=== PATIENT | male | born 1960 | race Two or more races ===

== ENCOUNTER 2024-02-25 09:38 | Outpatient (OUT) | payer OTHER, SELFPAY ==
[2024-02-25 10:12] LABS: Basophils Absolute Auto 0.1 10^3/uL (0.0-0.1); Basophils Percent Auto 0.9 % (0.2-2.0); Eosinophils Absolute Auto 0.2 10^3/uL (0.0-0.7); Eosinophils Percent Auto 3.2 % (0.9-7.0); Hematocrit 41.4 % (42.0-54.0); Hemoglobin 13.9 g/dL (14.0-18.0); Lymphocytes Absolute Auto 2.1 10^3/uL (1.2-3.8); Lymphocytes Percent Auto 37.4 % (20.5-60.0); Mean Corpuscular HGB Conc 33.6 g/dL (29.9-35.2); Mean Corpuscular Hemoglobin 29.4 pg (25.9-34.0); Mean Corpuscular Volume 87.7 fL (80.0-94.0); Mean Platelet Volume 9.8 fL (9.5-13.5); Monocytes Absolute Auto 0.4 10^3/uL (0.3-0.8); Neutrophils Absolute Auto 2.9 10^3/uL (1.4-6.5); Neutrophils Percent Auto 51.5 % (43.0-75.0); Platelet Count 191 10^3/uL (150-450); Red Blood Count 4.72 10^6/uL (4.70-6.10); Red Cell Distribution Width 12.4 % (11.0-15.0); White Blood Count 5.5 10^3/uL (4.0-11.0)
[2024-02-25 10:47] LABS: Alanine Aminotransferase 27 U/L (16-63); Albumin Globulin Ratio 1.1; Albumin Level 3.9 g/dL (3.4-5.0); Alkaline Phosphatase 91 U/L (46-116); Anion Gap 11.8; Aspartate Amino Transferase 14 U/L (15-37); BUN Creatinine Ratio 15.5; Bilirubin Total 0.9 mg/dL (0.2-1.0); Calcium 9.2 mg/dL (8.5-10.1); Carbon Dioxide 30.2 mmol/L (21.0-32.0); Chloride 105 mmol/L (98-107); Chol HDL Ratio 3.2; Cholesterol 134 mg/dL (<=200); Estimated GFR (African America >60 (>=60); Estimated GFR (Non-African Ame >60 (>=60); Globulin 3.4 g/dL; Glucose 109 mg/dL (74-106); HDL Cholesterol 42 mg/dL (40-60); LDL Cholesterol Calculated 68.8 mg/dL; Sodium 143 mmol/L (136-145); Total Protein 7.3 g/dL (6.4-8.2); Triglycerides 116 mg/dL (<=150); VLDL CHOLESTEROL 23.2 mg/dL
[2024-02-25 10:56] LABS: Prostate Specific Antigen Dx 1.86 ng/mL (<=4.00)
[2024-02-25 11:16] LABS: Troponin I High Sensitivity 170.8 pg/mL (4.0-76.1)
== END 2024-02-25 09:39 | disposition home or self-care (01) ==
PROVIDERS: PCP Family Medicine; Visit Provider Family Medicine
DX: Z00.00 Encounter for general adult medical examination without abnormal findings (principal); I10 Essential (primary) hypertension; E78.00 Pure hypercholesterolemia, unspecified; R79.89 Other specified abnormal findings of blood chemistry
CPT/HCPCS: 36415; 80053; 80061; 84153; 84439; 84443; 84484; 85025

== ENCOUNTER 2024-02-25 14:04 | Emergency (ER) | payer OTHER, SELFPAY ==
[2024-02-25] VITALS (18 sets, daily range): BP systolic 119–142; BP diastolic 67–79; PULSE 63–76; TEMP 36.8; O2SAT 93–99; BMI 28.1
--- NOTE | 2024-02-25 14:40 | ED_ITS ---
HPI HPI - General Adult General Chief complaint: Chest Pain Stated complaint: ABNORMAL LEVELS Time Seen by Provider: 02/25/24 14:11 Source: patient and family Mode of arrival: walk-in Limitations: no limitations History of Present Illness HPI narrative: This patient is here for evaluation of abnormal laboratory testing. His primary care doctor ordered a wellness battery of test but this patient suggested that he add a troponin to it as well. He did that because he has been having some chest discomfort off and on for several weeks. He is well known to the cardiology group in [place]. In fact he has had 6 coronary stents placed at that facility. Since that time, because of ongoing chest discomfort he has seen Dr. Hernandez at the [facility]. He had upper endoscopy ,echocardiogram, nuclear stress test and everything was normal .he came to this hospital to have the lab test because of insurance does not cover some of his physicians in [facility] and even the [facility]. He does not have any acute short breath.aber he is on statins. He does take Plavix and aspirin. He does not have a family history of coronary disease that he is aware of. He has been lifting a lot of weights. He wonders if his chest discomfort might be from his back because he has some discomfort in the scapular area as well. Related Data Home Medications ?Medication ?Instructions ?Recorded ?Confirmed aspirin 81 mg tablet,delayed 81 mg PO DAILY 02/25/24 02/25/24 release (Adult Aspirin Regimen) atorvastatin 40 mg tablet 40 mg PO BEDTIME 02/25/24 02/25/24 clopidogrel 75 mg tablet 75 mg PO DAILY 02/25/24 02/25/24 lisinopril 10 mg tablet 5 mg PO DAILY 02/25/24 02/25/24 pantoprazole 20 mg tablet,delayed 20 mg PO DAILY 02/25/24 02/25/24 release Allergies Allergy/AdvReac Type Severity Reaction Status Date / Time No Known Drug Allergies Allergy Verified 02/25/24 14:21 Opioid HPI Opioid Management Most Recent Opioid Data: Last ED Pain Assessment 02/25/24 14:23 Exam Narrative Exam Narrative: Awake alert relaxed pleasant not anxious. Vital signs are normal. 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 Overall skin and integument were normal he appears very healthy. ENT shows no evidence of scleral icterus or pallor. Heart sounds are normal with no clicks rubs gallops or murmur. The back area shows lungs to be clear with no wheeze rales rhonchi or pleural rub. Perfusion to the extremities is good with good capillary fill and good pulses to the upper limbs. He does not have any abdominal pain. He has no neurological symptoms at this time. Constitutional Vital Signs, click to edit/add: Last Vital Signs Temp 98.2 F 02/25/24 14:16 Pulse 73 02/25/24 15:10 Resp 25 H 02/25/24 15:10 BP 119/67 02/25/24 15:00 Pulse Ox 94 L 02/25/24 15:10 O2 Del Method Room Air 02/25/24 14:16 Course Vital Signs Vital signs: Vital Signs Temperature 98.2 F 02/25/24 14:16 Pulse Rate 76 02/25/24 14:16 Respiratory Rate 18 02/25/24 14:16 Blood Pressure 142/78 H 02/25/24 14:16 Pulse Oximetry 99 02/25/24 14:16 Oxygen Delivery Method Room Air 02/25/24 14:16 Temperature 98.2 F 02/25/24 14:16 Pulse Rate 73 02/25/24 15:10 Respiratory Rate 25 H 02/25/24 15:10 Blood Pressure 119/67 02/25/24 15:00 Pulse Oximetry 94 L 02/25/24 15:10 Oxygen Delivery Method Room Air 02/25/24 14:16 Medical Decision Making MDM Narrative Medical decision making narrative: Patient's outpatient routine lab testing troponin was done here is elevated at 10/18/2004 and half hours later when we do repeat troponin in ER it still at 171. 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 Hoffman, and he reviewed his records. We reviewed his medications. He is scheduled to see him in a couple weeks but he says he will move up that appointment early next week. He thinks that the weight lifting may be contributing to some ventricular strain causing the persistent elevation of his troponin. I have recommended patient stop the weightlifting which she is already done now. No changes medication history was advised. Patient had extensive workup in September at the [facility] including nuclear stress, echocardiogram and upper endoscopy. Lab Data Labs: Lab Results 02/25/24 Range/Units 14:20 Troponin I High Sens 170.1 H* (4.0-76.1) pg/mL Discharge Plan Discharge Stand Alone Forms: Portal Instructions Chief Complaint: Chest Pain Clinical Impression: Atypical chest pain Patient Disposition: Home, Self-Care Time of Disposition Decision: 15:43 Prescriptions / Home Meds: No Action atorvastatin 40 mg tablet 40 mg PO BEDTIME clopidogrel 75 mg tablet 75 mg PO DAILY lisinopril 10 mg tablet 5 mg PO DAILY pantoprazole 20 mg tablet,delayed release (DR/EC) 20 mg PO DAILY aspirin [Adult Aspirin Regimen] 81 mg tablet,delayed release (DR/EC) 81 mg PO DAILY Print Language: Georgian Additional Instructions: Follow-up with Dr. Hoffman early next week as discussed Referrals: ASIF HARPER [Primary Care Provider] - 1 week
--- NOTE | 2024-02-25 14:49 | ECG_ITS ---
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
[2024-02-25 15:14] LABS: Troponin I High Sensitivity 170.1 pg/mL (4.0-76.1)
[2024-02-25] MEDS: ASPIRIN 81 MG TAB.CHEW PO (15:22)
== END 2024-02-25 16:06 | disposition home or self-care (01) ==
PROVIDERS: Emergency Provider Emergency Medicine Emergency Medical Services; PCP Family Medicine
DX: R07.89 Other chest pain (principal); Z00.00 Encounter for general adult medical examination without abnormal findings; I10 Essential (primary) hypertension; E78.00 Pure hypercholesterolemia, unspecified; R79.89 Other specified abnormal findings of blood chemistry; Z95.5 Presence of coronary angioplasty implant and graft; Z79.02 Long term (current) use of antithrombotics/antiplatelets; Z79.84 Long term (current) use of oral hypoglycemic drugs
CPT/HCPCS: 36415; 80053; 80061; 84153; 84439; 84443; 84484; 85025; 93005; 99284